=== PATIENT | male | born 1980 ===

== ENCOUNTER 2016-06-23 20:23 | Emergency (ER) | payer OTHER ==
[2016-06-23] MEDS ORDERED: KETOROLAC TROMETHAMINE 60 MG/2 ML VIAL IM ONE ×2 (21:00→21:03)
--- OUTSIDE RECORDS SUMMARY | 2016-06-23 21:01 | XMS REPORT | Continuity of Care Document ---
:1980 Author Organization [facility] ([facility]) Address [place] [address] Phone [phone] Care Team Providers Name Role Phone Provider, No-Primary Care Primary Care Provider Unavailable Source Comments This disclosure is being made pursuant to the Care Everywhere program, applicable federal and state laws, and may not contain all informaitonavailable regarding this patient.[facility] ([facility]) Active Allergies and Adverse Reactions Allergen Noted Date Severity Reactions Comments Other Agent 05/24/2011 Anaphylaxis Wasp stings Sulfa (Sulfonamide Antibiotics) 04/16/2011 Anaphylaxis Current Medications Prescription Sig. Disp. Refills Start Date End Date Status HYDROcodone-acetaminophen Take 1-2 Tabs by 20 Tab 1 06/17/2011 Active 5-325 mg per tablet mouth every 4 hours as needed. Indications: Pain Active Problems Problem Noted Date Sterilization consult 05/24/2011 Immunizations Name Dates Previously Given Next Due Tdap 04/16/2011 Social History Tobacco Use Types Packs/Day Years Used Date Never Assessed Last Filed Vital Signs Vital Sign Reading Time Taken Blood Pressure 139/71 06/19/2011 1:06 PM [employer] Pulse 92 06/19/2011 1:06 PM [employer] Temperature 37 C (98.6 F) 06/19/2011 1:06 PM [employer] Respiratory Rate 20 06/19/2011 1:06 PM [employer] Height 1.778 m (5' 10") 06/19/2011 1:06 PM [employer] Weight 84.369 kg (186 lb) 06/19/2011 1:06 PM [employer] Body Mass Index 26.69 06/19/2011 1:06 PM [employer] Oxygen Saturation 98% 06/19/2011 1:06 PM [employer] Plan of Care Health Maintenance Due Date Last Done Comments Hepatitis B Vaccine (1 of 3 - Primary Series) 1980 Lipid Disorder Screening 2000 MMR Vaccine 2000 Varicella Vaccine (1 of 2 - Adult - No Evidence of 2000 Immunity) Influenza Vaccine: Seasonal (#1) 11/13/2015 Td Vaccine 04/16/2021 04/16/2011 Tdap Vaccine Completed 04/16/2011 Results from Last 3 Months Not on file
--- NOTE | 2016-06-23 21:13 | ERNOTE ---
Medical Problem HPI - General Chief Complaint: General Assessment Time Seen by Provider: 06/23/16 20:51 Source: patient, family Exam Limitations: no limitations - Immun/Allergies/Home Medications Immunizations: IMMUNIZATION HX Immunizations Up to Date Yes History of Influenza Vaccine Yes Allergies/Adverse Reactions: Allergies Sulfa (Sulfonamide Antibiotics) [Sulfa(Sulfonamide Antibiotics)] Allergy (Severe , Verified 06/23/16 20:42) Anaphylaxis Home Medications: HOME MEDICATIONS NK [No Home Medication] 05/17/13 [Last Taken Unknown] - History of Present History Narrative: Patient started to not feel well last night and has had increasing chills, body aches and dry cough. He has a history of meningitis four years ago and was told that if he had any upper respiratory symptoms to get checked out so he doesn't get it again. When asked about the meningitis he states that he had symptoms for weeks, the diagnosis was a clinical one as he refused the spinal tap. He currently also has a right sided headache that feel like the beginning of his migraines, no nausea or vomiting yet Date (Duration): 06/22/16 Timing: getting worse Review of Systems - Review of Systems Constitutional: Present: fever, chills EYE: Absent: blurred vision ENT: Present: nose congestion. Absent: sore throat Respiratory: Present: cough. Absent: shortness of breath Cardiology: Absent: chest pain Gastrointestinal/Abdominal: Absent: nausea, vomiting, diarrhea, abdominal pain Musculoskeletal: Present: muscle pain - generalized aches Skin: Absent: rash Neurological: Present: See HPI, headache. Absent: weakness, numbness - Patient's Past Medical History Patient History - Medical: Migraines Patient History - Cardiac/Respiratory: No pertinent hx Patient History - Cancer: No Hx of Cancer - Social History Psych History: No pertinent hx Smoking Status: Current every day smoker Patient requests Smoking Cessation Consult: No Initiate information on Smoking Cessation: No Alcohol Use: none Drug Use: none - Immunizations Immunizations Up to Date: Yes History of Influenza Vaccine: Yes Physical Exam - Physical Exam General Appearance: Present: wd/wn, alert, mild distress Eye Exam: Normal inspection: bilateral, PERRL: bilateral Ears, Nose, Throat: Present: normal ENT inspection, normal pharynx Neck: Present: normal inspection, nontender, supple, full range of motion Respiratory: Present: no respiratory distress, normal breath sounds, no accessory muscle use, lungs clear Cardiovascular/Chest: Present: regular rate, rhythm, no murmur Gastrointestinal/Abdominal: Present: nondistended, soft Neurological Exam: Present: alert, oriented, normal mood/affect Skin Exam: Present: normal color, warm/dry ED Progress - Results and Orders Patient's Lab Results:: I have reviewed the patient's lab results. - Vital Signs Patient's Vital Signs:: I have reviewed the patient's vital signs. Vital Signs: Vital Signs 06/23/16 20:38 Temperature 39.5 C H Pulse Rate 112 H Respiratory 18 Rate Blood Pressure 130/71 O2 Sat by Pulse 98 Oximetry - Progress/Reassessment Chief Complaint: General Assessment Progress Note-Subjective: 06/23/16 21:54 feeling a little better after toradol explained results Departure - Departure Clinical Impression: Flu-like symptoms Disposition: Home self-care Condition: Good Instructions: Fever, Adult, [id number] Additional Instructions: take over the counter ibuprofen and tylenol as needed for fever follow up with your doctor if not better in 2-3 days
[2016-06-23 21:14] LABS: Hematocrit 43.9 % (42.0-52.0); Hemoglobin 15.2 gm/dL (13.5-18.0); Mean Cell Volume 89.8 fl (78-100); Mean Corpuscular Hemoglobin 31.1 pg (27-31); Mean Corpuscular Hgb Conc 34.6 g/dl (32-36); Neutrophil % 77.5 % (42-75.0); Platelet Count 238 K/mm3 (150-450); Red Blood Count 4.89 M/mm3 (4.7-6.0); Red Cell Distribution Width 11.9 % (11.5-14.0); White Blood Count 7.8 K/mm3 (4.0-10.5)
[2016-06-23 22:10] VITALS: BP 126/82
== END 2016-06-23 22:05 | disposition home or self-care (01) ==
LOC: ER 20:23
DX: J10.1 Influenza due to other identified influenza virus with other respiratory manifestations (principal); Z72.0 Tobacco use